=== PATIENT | female | born 2000 | race Caucasian/White ===

== ENCOUNTER 2022-12-10 00:37 | Emergency (ER) | payer SELFPAY ==
[~2022-12-10] VITALS: Ht 167.6 cm; Wt 106.0 kg
[2022-12-10 01:20] VITALS: BP 143/98
== END 2022-12-10 01:28 | disposition left against medical advice (07) ==
LOC: ER 00:37
DX: Z53.21 Procedure and treatment not carried out due to patient leaving prior to being seen by health care provider (principal); I49.9 Cardiac arrhythmia, unspecified
CPT/HCPCS: 93005